=== PATIENT | female | born 1985 | race American Indian/Alaskan Native ===

== ENCOUNTER 2018-10-29 04:35 | Inpatient (IN) | payer OTHER ==
[2018-10-29] MEDS ORDERED: MINERAL OIL PO PRN ×2 (06:12→22:00)
[2018-10-29] MEDS ORDERED: SUBLIMAZE IV PRN (06:12)
[2018-10-29] MEDS ORDERED: STADOL IV PRN (06:12)
[2018-10-29] MEDS ORDERED: BRETHINE SUB-Q PRN ×2 (06:12→09:00)
[2018-10-29] MEDS ORDERED: XYLOCAINE 2% INFILTRATI ONE (06:12)
[2018-10-29] MEDS ORDERED: AMPICILLIN/NS 2 GM/100 ML 2 GM/100 ML BAG IV ONE (06:12)
[2018-10-29] MEDS ORDERED: BRETHINE IVP PRN ×2 (06:12→09:00)
[2018-10-29] MEDS ORDERED: LACTATED RINGERS 1,000 ML IV SCH ×2 (07:00→09:00)
[2018-10-29 07:01] LABS: Hematocrit 35.1 % (30.3-42.9); Hemoglobin 11.5 gm/dl (10.1-14.3); Mean Corpuscular HGB Conc 33 % (30-34); Mean Corpuscular Volume 85 fl (79-97); Platelet Count 220 K/mm3 (140-440); Red Blood Count 4.14 M/mm3 (3.65-5.03); Red Cell Distribution Width 14.7 % (13.2-15.2)
[2018-10-29] MEDS ORDERED: PHENERGAN PO PRN ×2 (07:12→09:00)
[2018-10-29] MEDS ORDERED: ZOFRAN IV PRN ×2 (07:12→09:00)
--- NOTE | 2018-10-29 07:12 | History and Physical Report ---
History of Present Illness Date of examination: 10/29/18 Date of admission: 10/29/18 07:05 Chief complaint: Labor History of present illness: Pt is a 33yo BF EDC 11/04/18; EGA 39 1/7 weeks presents to L&D complaining of RUC's q 3-4 mins. She received care at [facility] and had a previous C Section - she desires a TOLAC. records are not available and GBS is unknown. Past History Past Medical History: no pertinent history Past Surgical History: section Family/Genetic History: none Social history: no significant social history, - Obstetrical History Expected Date of Delivery: 11/04/18 Actual Gestation: 39 Week(s) 1 Day(s) : 4 Medications and Allergies Allergies Allergy/AdvReac Type Severity Reaction Status Date / Time No Known Allergies Allergy Verified 10/29/18 06:16 Home Medications Medication Instructions Recorded Confirmed Last Taken Type Vit-Fe Fumar-FA [ 1 tab PO QDAY 10/29/18 10/29/18 10/28/18 History Vitamin] Active Meds: Active Medications Butorphanol Tartrate (Stadol) 2 mg IV Q2H PRN PRN Reason: Pain , Severe (7-10) Ephedrine Sulfate (Ephedrine Sulfate) 10 mg IV Q2M PRN PRN Reason: Hypotension Fentanyl (Sublimaze) 100 mcg IV Q2H PRN PRN Reason: Labor Pain Ampicillin Sodium (Polycillin/Ns 2 Gm/100 Ml) 2 gm in 100 mls @ 100 mls/hr IV ONCE ONE; Protocol Stop: 10/29/18 07:11 Lactated Ringer's (Lactated Ringers) 1,000 mls @ 125 mls/hr IV DIRECT XOCHILT Oxytocin/Sodium Chloride (Pitocin/Ns 20 Unit/1000ml Drip) 20 units in 1,000 mls @ 125 mls/hr IV DIRECT XOCHILT Ampicillin Sodium (Ampicillin/Ns 1 Gm/50 Ml) 1 gm in 50 mls @ 100 mls/hr IV Q4HR XOCHILT; Protocol Mineral Oil (Mineral Oil) 30 ml PO QHS PRN PRN Reason: Constipation Terbutaline Sulfate (Brethine) 0.25 mg SUB-Q ONCE PRN PRN Reason: Hyperstimulation/Hypertonicity Terbutaline Sulfate (Brethine) 0.25 mg IVP ONCE PRN PRN Reason: Hyperstimulation/Hypertonicity Review of Systems All systems: negative - Vital Signs Vital signs: Vital Signs Temp Pulse Resp BP 98.0 F 97 H 22 132/80 10/29/18 04:44 10/29/18 04:44 10/29/18 04:44 10/29/18 04:44 Temp Pulse Resp BP Pulse Ox 98.0 F 77 22 118/69 10/29/18 04:44 10/29/18 06:07 10/29/18 04:44 10/29/18 06:07 - Physical Exam Breasts: Positive: deferred Cardiovascular: Regular rate Lungs: Positive: Clear to auscultation Abdomen: Positive: normal appearance Genitourinary (Female): Positive: normal external genitalia Vagina: Positive: normal moisture Uterus: Positive: enlarged Extremities: Positive: normal - Obstetrical FHR: category 1 Uterine Contraction Monitor Mode: External Cervical Dilatation: 4 (per nurse) Cervical Effacement Percentage: 90 (per nurse) station: -3 Uterine Contraction Pattern: Regular Uterine Tone Measurement Phase: Contraction Uterine Contraction Intensity: Moderate Results Result Diagrams: 10/29/18 06:35 All other labs normal. Assessment and Plan - Patient Problems (1) 39 weeks gestation of Onset Date: 10/29/18 Current Visit: Yes Status: Acute Plan to address problem: A: IUP @ 39 1/7 weeks Previous C Section - Desires Unknown GBS P: Admit to L&D for expectant vaginal delivery - TOLAC IV Ampicillin (2) Previous delivery affecting Onset Date: 10/29/18 Current Visit: Yes Status: Acute
[2018-10-29] MEDS: PITOCin/NS 20 UNIT/1000ML DRIP 20 UNITS/1,000 ML BAG IV SCH ×2 (07:29→08:41)
--- NOTE | 2018-10-29 07:55 | Procedure Note ---
OB Delivery Note - Delivery Date of Delivery: 10/29/18 Surgeon: MARLENE BONILLA Estimated blood loss: other (150cc) - Vaginal Delivery presentation: vertex Delivery position: OA Intrapartum events: meconium, precipitous labor- <3hr Delivery induction: none Delivery augmentation: rupture of membranes Delivery monitor: external FHT, external uterine Route of delivery: Delivery placenta: spontaneous Delivery cord: 3 umbilical vessels Episiotomy: none Delivery laceration: 1st degree Delivery repair: vicryl Anesthesia: local Delivery comments: Infant delivered OA and placed on Mom's chest for [id number] bonding and delayed cord clamping, cut by Dad - A at 1 minute: 7 at 5 minutes: 8 Infant Gender: Female (2720gms)
[2018-10-29] MEDS ORDERED: PITOCin/NS 20 UNIT/1000ML DRIP 20 UNITS/1,000 ML BAG IV SCH ×2 (08:00→09:00)
[2018-10-29] MEDS ORDERED: XYLOCAINE 2% INFILTRATI NR (09:00)
[2018-10-29] MEDS ORDERED: LANSINOH TP PRN (09:00)
[2018-10-29] MEDS ORDERED: PITOCin/NS 30 UNIT/500ML 30 UNITS/500 ML BAG IV SCH (09:00)
[2018-10-29] MEDS ORDERED: TUCKS PAD TP PRN (09:00)
[2018-10-29] MEDS ORDERED: BENADRYL PO PRN (09:00)
[2018-10-29] MEDS ORDERED: PHENERGAN PR PRN (09:00)
[2018-10-29] MEDS ORDERED: TYLENOL PO PRN (09:00)
[2018-10-29] MEDS ORDERED: SODIUM CHLORIDE FLUSH SYRINGE 10 ML IV PRN (09:00)
[2018-10-29] MEDS ORDERED: NORCO 5/325 PO PRN (09:00)
[2018-10-29] MEDS ORDERED: AMPICILLIN/NS 1 GM/50 ML 1 GM/50 ML BAG IV SCH (10:00)
[2018-10-29] MEDS ORDERED: DULCOLAX PR PRN (10:00)
[2018-10-29] MEDS: PRENATAL VITAMIN PO SCH (10:19)
[2018-10-29] MEDS: FEOSOL PO SCH ×2 (10:19→22:10)
[2018-10-29] MEDS: IBUPROFEN PO SCH ×3 (10:19→22:10)
[2018-10-29] MEDS: COLACE PO SCH ×2 (10:20→22:10)
[2018-10-29 18:28] LABS: Hematocrit 33.6 % (30.3-42.9); Hemoglobin 10.8 gm/dl (10.1-14.3)
[2018-10-29] MEDS ORDERED: MILK OF MAGNESIA PO PRN (22:00)
[2018-10-30] MEDS ORDERED: BOOSTRIX IM ONE (06:00)
--- NOTE | 2018-10-30 10:43 | Progress Note ---
Assessment and Plan - Patient Problems (1) 39 weeks gestation of Onset Date: 10/29/18 Current Visit: Yes Status: Resolved (2) Previous delivery affecting Onset Date: 10/29/18 Current Visit: Yes Status: Resolved (3) (vaginal after ) Onset Date: 10/30/18 Current Visit: Yes Status: Resolved Plan to address problem: A: S/P - PPD #1 Doing well Asymptomatic anemia - stable P: May go home tomorrow. Subjective - Subjective Date of service: 10/30/18 Principal diagnosis: s/p - PPD #1 Interval history: Pt is feeling well without complaints. Bleeding improved. Patient reports: appetite normal, voiding normally, pain well controlled, flatus, ambulating normally, no dizzy ambulation, no nauseated [place]: doing well, nursing well, bottle feeding Objective - Vital Signs Latest vital signs: Vital Signs Temp Pulse Resp BP Pulse Ox 10/30/18 08:02 98.5 F 73 16 98/51 98 10/29/18 23:10 20 10/29/18 23:06 98.9 F 87 120/68 10/29/18 22:10 16 10/29/18 16:02 98.4 F 83 18 104/50 Intake and Output 10/29/18 10/30/18 10/30/18 22:59 06:59 14:59 Intake Total 600 240 Balance 600 240 Intake: Oral 600 Intake, Free Water 240 Other: Total, Intake Amount 240 # Voids Void 1 1 - Exam Breasts: Present: deferred Cardiovascular: Present: Regular rate Lungs: Present: Clear to auscultation Abdomen: Present: normal appearance, soft Uterus: Present: normal, firm, fundal height below umbilicus Extremities: Present: normal - Labs Labs: Laboratory Tests 10/29/18 10/29/18 10/29/18 06:35 06:35 06:35 WBC 8.6 RBC 4.14 Hgb 11.5 Hct 35.1 MCV 85 MCH 28 MCHC 33 RDW 14.7 Plt Count 220 RPR Nonreactive Blood Type O POSITIVE Antibody Screen Negative 10/29/18 18:09 WBC RBC Hgb 10.8 Hct 33.6 MCV MCH MCHC RDW Plt Count RPR Blood Type Antibody Screen
--- NOTE | 2018-10-30 10:44 | Discharge Summary ---
Providers - Providers Date of Admission: 10/29/18 07:05 Date of discharge: 10/31/18 Attending physician: MARLENE BONILLA Primary care physician: MARLENE BONILLA Hospitalization Reason for admission: active labor, IUP at term Delivery: Episiotomy: none Laceration: 1st degree Other procedures: none complications: none Discharge diagnosis: IUP at term delivered baby: female Hospital course: Unremarkable. Condition at discharge: Good Disposition: DC-01 TO HOME OR SELFCARE - Discharge Diagnoses (1) 39 weeks gestation of Status: Resolved (2) Previous delivery affecting Status: Resolved (3) (vaginal after ) Status: Resolved Plan - Discharge Medications Prescriptions: Ferrous Sulfate [Feosol 325 MG tab] 325 mg PO BID #60 tablet Ibuprofen [Motrin 600 MG tab] 600 mg PO Q6H #30 tablet Vit-Fe Fumar-FA [ Vitamin] 1 each PO QDAY #30 tablet - Provider Discharge Summary Activity: routine, no sex for 6 weeks, no heavy lifting 4 weeks, no strenuous exercise Diet: routine Instructions: routine Additional instructions: [] Smoking cessation referral if applicable(refer to patient education folder for contact #) [] Refer to [facility] Booklet Call your doctor immediately for: * Fever > 100.5 * Heavy vaginal bleeding ( >1 pad per hour) * Severe persistent headache * Shortness of breath * Reddened, hot, painful area to leg or breast * Drainage or odor from incision. * Keep incision clean and dry at all times and follow doctor's instructions regarding bathing/showering - Follow up plan Follow up: MARLENE BONILLA MD [Primary Care Provider] - 6 Weeks
[2018-10-30] MEDS ORDERED: M-M-R II VACCINE SUB-Q ONE (11:00)
[2018-10-30] MEDS: FEOSOL PO SCH ×2 (14:50→22:15)
[2018-10-30] MEDS: COLACE PO SCH ×2 (14:50→22:14)
[2018-10-30] MEDS: PRENATAL VITAMIN PO SCH (14:50)
[2018-10-30] MEDS: IBUPROFEN PO SCH ×2 (14:54→18:15)
[2018-10-31 13:58] VITALS: BP 116/68
== END 2018-10-31 13:50 | disposition home or self-care (01) | DRG 807 ==
LOC: TRG 04:35 → LD 07:05 → OB 09:12
PROVIDERS: ADMIT Obstetrics & Gynecology; ATTEND Obstetrics & Gynecology
PROC: 10E0XZZ Delivery of Products of Conception, External Approach (ICD-10-PCS; principal; 2018-10-29)
PROC: 0HQ9XZZ Repair Perineum Skin, External Approach (ICD-10-PCS; 2018-10-29)
DX: O34.211 Maternal care for low transverse scar from previous cesarean delivery (principal); Z37.0 Single live birth; O77.0 Labor and delivery complicated by meconium in amniotic fluid; O62.3 Precipitate labor; Z3A.39 39 weeks gestation of pregnancy; O70.0 First degree perineal laceration during delivery; O90.81 Anemia of the puerperium; D64.9 Anemia, unspecified
CPT/HCPCS: 36415; 85014; 85018; 85027; 86592; 86850; 86900; 86901; G0378; J0290; J2590; J3010; J7120